=== PATIENT | male | born 1980 | race Caucasian/White ===

== ENCOUNTER → 2021-01-28 | Emergency (ER) | payer OTHER ==
[~2021-01-28] VITALS: Ht 175.3 cm; Wt 68.0 kg
[2021-01-28 23:29] VITALS: BP 132/78
--- NOTE | 2021-01-29 09:32 | EKG ---
[place] [address] ELECTROCARDIOGRAM REPORT Name: MALGORZATA HASTINGS Room: [facility]#: [id number] Admission: 01/28/21 Attend Phys: Discharge: Date of : 82 Date of Service: 01/28/212246 Report #: [id number] THIS REPORT FOR: //name// [facility] ED Test Date: 2021-01-28 Test Time: 22:47:03 Pat Name: MALGORZATA HASTINGS Department: Room: Gender: Network Systems Engineer: : 1980 Requested By: Berta Davis Order Number: [id number] MD: Bart Geiger Measurements Intervals [place] Rate: 103 P: 74 NM: 182 QRS: 53 QRSD: 83 T: 52 QT: 322 QTc: 422 Interpretive Statements Sinus tachycardia Baseline wander in lead(s) V6 No previous ECG available for comparison Electronically Signed On 01-29-2021 9:32:10 [employer] OFF[employer] by Bart Geiger [email or web address] <ELECTRONICALLY SIGNED> By: Roshan Geiger MD, [facility] 01/29/21 0932 46 Roshan Geiger MD, [facility] /EPI
== END ==
LOC: EDSEX 22:49 → M.ERS 22:49
DX: F41.9 Anxiety disorder, unspecified (principal); R07.89 Other chest pain